=== PATIENT | female | born 1990 | race Caucasian/White ===

== ENCOUNTER 2017-09-26 23:29 | Emergency (ER) | payer OTHER ==
[2017-09-26 23:35] VITALS: BP 126/80
--- NOTE | 2017-09-27 00:26 | ED ---
Laceration/Wound HPI - HPI Summary HPI Summary: 26-year-old female presents with left hand laceration today. States she was cleaning a knife and cut her left thumb. She has full range motion of her thumb. No numbness or tingling. No active bleeding. Tetanus up-to-date. She is no medical conditions. No other injuries. - History of Current Complaint Stated Complaint: FINGER LAC Time Seen by Provider: 09/27/17 00:15 Pain Intensity: 0 - Allergy/Home Medications Allergies/Adverse Reactions: Allergies Allergy/AdvReac Type Severity Reaction Status Date / Time No Known Allergies Allergy Verified 09/26/17 23:35 PMH/Surg Hx/FS Hx/Imm Hx Endocrine/Hematology History: Denies: Hx Anticoagulant Therapy Psychiatric History: Reports: Other Psychiatric Issues/Disorders - insomnia for which she was prescibed trazadone for Infectious Disease History: No Infectious Disease History: Denies: Traveled Outside the [place] in Last 30 Days - Family History Known Family History: Positive: Unknown - Social History Alcohol Use: Occasionally Hx Substance Use: No Substance Use Type: Reports: None Smoking Status (MU): Unknown if Ever Smoked Review of Systems Negative: Fever Negative: Chest Pain Negative: Shortness Of Breath Positive: Other - left thumb lac All Other Systems Reviewed And Are Negative: Yes Physical Exam Triage Information Reviewed: Yes Vital Signs On Initial Exam: Initial Vitals Temp Pulse Resp BP Pulse Ox 97.8 F 67 16 126/80 100 09/26/17 23:33 09/26/17 23:33 09/26/17 23:33 09/26/17 23:33 09/26/17 23:33 Vital Signs Reviewed: Yes Appearance: Positive: Well-Appearing Skin: Positive: Warm, Dry, Other - 1cm by 1/2cm laceration to IP in webbing of left thumb Head/Face: Positive: Normal Head/Face Inspection Eyes: Positive: Normal, Conjunctiva Clear Respiratory/Lung Sounds: Positive: Clear to Auscultation, Breath Sounds Present Cardiovascular: Positive: Normal, RRR Musculoskeletal: Positive: Strength/ROM Intact - left thumb, Other - good pulses , capillary refill<2 secs Neurological: Positive: Normal Psychiatric: Positive: Normal Procedures - Laceration/Wound Repair 1 Location: Other - left thumb Description: Linear Anesthesia: Local, 1.0% Length, Depth and Shape: 1cm by 1/2cm Irrigated w/ Saline (ccs): 100 Closure: Single Layer Suture Type: Prolene Number of Sutures: 2 Layer Closure?: No Sterile Dressing Applied?: No - telfa and seven Diagnostics - Vital Signs Vital Signs Temp Pulse Resp BP Pulse Ox 09/26/17 23:33 97.8 F 67 16 126/80 100 - Laboratory Lab Statement: Any lab studies that have been ordered have been reviewed, and results considered in the medical decision making process. Laceration Repair Course/Dx - Course Course Of Treatment: 26-year-old female presents with left hand laceration today. States she was cleaning a knife and cut her left thumb. She has full range motion of her thumb. No numbness or tingling. No active bleeding. Tetanus up-to-date. She is no medical conditions. No other injuries. On exam has a 1 cm by half centimeter laceration at the IP tonight it between the left thumb and left index finger. Cleaned area and placed [address] in Seven. Patient understands agrees plan. - Differential Dx Differental Diagnoses: Abrasion, Avulsion, Laceration - Clinical Impression Provider Diagnoses: Laceration of left thumb Discharge - Sign-Out/Discharge Documenting (check all that apply): Discharge/Admit/Transfer - Discharge Plan Condition: Good Disposition: HOME Patient Education Materials: Care For Your Stitches (ED) Referrals: Leonardo Roach [employer] [Primary Care Provider] - Additional Instructions: Take Tylenol or ibuprofen for pain Keep area clean and dry for 24 hours Return to ED or primary in 10-14 days to have sutures removed Return to ED if develop signs of infection such as fever, spreading redness, or pus. - Billing Disposition and Condition Condition: GOOD Disposition: Home
== END 2017-09-27 01:18 | disposition home or self-care (01) ==
LOC: ED 23:29
DX: S61.412A Laceration without foreign body of left hand, initial encounter (principal); W26.0XXA Contact with knife, initial encounter; Y92.9 Unspecified place or not applicable
CPT/HCPCS: 12001; 99282